=== PATIENT | male | born 1985 | race Caucasian/White ===

== ENCOUNTER → 2018-10-08 08:19 | Outpatient (CLI) | payer OTHER, SELFPAY ==
[2018-10-08 10:18] LABS: Anion Gap 7 (5-15); BUN 15 mg/dL (7-18); BUN/Creat Ratio 16.7 RATIO (10-20); Calcium,Total 8.7 mg/dL (8.5-10.1); Chloride 105 mmol/L (98-107); Cholesterol 125 mg/dL (200); EST Glomerular Filtration Rate 104 mL/min (>60); Est Glom Filt Rate - Afr Amer 126 mL/min (>60); Glucose 86 mg/dL (74-106); High Density Lipoprotein 34 mg/dL; Potassium 4.4 mmol/L (3.5-5.1); Sodium Level 142 mmol/L (136-145); Triglycerides 148 mg/dL; Very Low Density Lipoprotein 30 mg/dL (5-40)
== END ==
PROVIDERS: Family Provider Family Medicine; PCP Family Medicine; Referring Provider Family Medicine; Visit Provider Family Medicine
DX: Z00.00 Encounter for general adult medical examination without abnormal findings (principal)
CPT/HCPCS: 36415; 80048; 80061

== ENCOUNTER 2021-10-26 08:38 | Outpatient (CLI) | payer OTHER, SELFPAY ==
[2021-10-26 10:09] LABS: Anion Gap 3 (5-15); BUN 11 mg/dL (7-18); BUN/Creat Ratio 12.6 RATIO (10-20); Calcium,Total 8.8 mg/dL (8.5-10.1); Chloride 108 mmol/L (98-107); Cholesterol 132 mg/dL (200); Creatinine, Serum 0.87 mg/dL (0.70-1.30); EST Glomerular Filtration Rate 105 mL/min (>60); Est Glom Filt Rate - Afr Amer 128 mL/min (>60); Glucose 92 mg/dL (74-106); High Density Lipoprotein 36 mg/dL; Potassium 4.1 mmol/L (3.5-5.1); Sodium Level 139 mmol/L (136-145); Triglycerides 113 mg/dL; Very Low Density Lipoprotein 23 mg/dL (5-40)
== END 2021-10-26 23:59 | disposition home or self-care (01) ==
LOC: MFPLAB 08:40
PROVIDERS: PCP Family Medicine; Referring Provider Family Medicine; Visit Provider Family Medicine
DX: Z13.220 Encounter for screening for lipoid disorders (principal)
CPT/HCPCS: 36415; 80048; 80061

== ENCOUNTER → 2023-09-25 | Outpatient (CLI) | payer OTHER, SELFPAY ==
--- NOTE | 2023-09-25 17:08 | RAD_ITS ---
STUDY: X-RAY - PARANASAL SINUSES REASON FOR EXAM: Male, 37 years old. NASAL CONGESTION TECHNIQUE: 3 view(s) of the paranasal sinuses were obtained. COMPARISON: None. FINDINGS: Normal visualized frontal, maxillary, ethmoidal and sphenoid sinuses. Normal visualized facial bones. The soft tissue structures are unremarkable. RAD/Sinuses min 3 Views IMPRESSION: Normal x-rays of the paranasal sinuses. Electronically Signed: Ben Field MD at 13:03 EST ,
== END | disposition home or self-care (01) ==
PROVIDERS: PCP Family Medicine; Referring Provider Family Medicine; Visit Provider Family Medicine
DX: R09.81 Nasal congestion (principal); R51.9 Headache, unspecified
CPT/HCPCS: 70220

== ENCOUNTER → 2024-07-21 | Outpatient (CLI) | payer OTHER, SELFPAY ==
--- NOTE | 2024-07-21 17:02 | RAD_ITS ---
EXAM: XR LEFT FOOT COMPLETE, 3 OR MORE VIEWS CLINICAL INDICATION: injury 1 month ago. Pain. TECHNIQUE: Frontal, lateral and oblique views of the left foot. COMPARISON: No relevant prior studies available. FINDINGS: BONES/JOINTS: No significant abnormality. No acute fracture. No subluxation. Normal alignment. Preservation of the joint space. No sclerotic or destructive changes observed. SOFT TISSUES: No significant abnormality. No soft tissue swelling or gas. No radiopaque foreign body. RAD/Foot min 3 Views IMPRESSION: Negative left foot x-rays. Electronically Signed: Wilfrido Duran DO at 23:56 EST ,
== END | disposition home or self-care (01) ==
LOC: MTRAD 17:01
PROVIDERS: PCP Family Medicine; Referring Provider Family Medicine; Visit Provider Family Medicine
DX: M79.672 Pain in left foot (principal)
CPT/HCPCS: 73630

== ENCOUNTER 2024-08-23 17:30 | Outpatient (RCR) | payer OTHER, SELFPAY ==
--- NOTE | 2024-08-09 17:31 | HP.PTEVAL_ITS ---
Patient's Visit Information Visit Information Visit Information: CIARAN PINA is a 38 year old M referred to Physical Therapy by Dr. Bijan Chu MD with a diagnosis of LEFT FOOT PAIN. Date of Evaluation: 08/09/24 Physical Therapist: Shine Miller PT, Cert MDT, OCS Visit Plan Frequency: 1-2x /Week Duration: 4 Weeks Plan: PT INTERVENTIONS TOE /MCP ROM ,STRENGTHENING TOES ,INTRINSIC ST RENGTHENING , AND PROPRIOCEPTION Subjective Subjective: This 38 y/o male presents to physical therapy with left foot pain. Patient hurt foot aerial yoga on Jun 16 by hit toe/foot . Patient Jun 16 Urgent care did x-rays -. Place post op boot . Seen DR Anaya Jul 22 repeated x-rays -. Patient DR recommended PT. Patient has not been doing Yoga. Initially had bruising toes and edema. Patient denies paresthesia/tingling-. Patient symptoms did interfere with sleeping. Patient has soreness with contact. Patient condition affects yoga. Patient goals to aerial yoga and generalized. 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[employer] SOCIAL: Pain Left Foot: Pain Intensity (Out of 10): 2 Pain Intensity Range: 10 Objective Objective: POSTURE: pes planus GAIT:reciprocal pattern NEURO: denies paresthesia/tingling, OBSERVATION: mild ecchymosis 2 toe ,mild effusion TTP: 2nd toe AROM: ankle dorsiflexion 5 degrees ,plantarflexion 65 degrees ,eversion 5 degrees ,inversion 35 TOE ROM: WFL MMT: ankle 5/5 stabilizers,toe extensors 4/5 ,flexors 4/5 except 4-/5 PROPRIOCEPTION: intact Balance/Special Test Scores Lower Extremity Functional Score: 56 Goals Goal 1:: Patient to be I with HEP for toe ex's Goal Time Frame: 4-6 Weeks Goal 2:: Patient to demonstrate 75% improvement with less toe pain and improved function and return to yoga. Goal Time Frame: 4-6 Weeks Goal 3:: Patient to improve ROM toes phalanges to return to yoga and normal activity Goal Time Frame: 4-6 Weeks Goal 4:: Patient to improve LFES score by 5 points to improve QOL and function Goal Time Frame: 4-6 Weeks Rehabilitation Potential Physical Therapy Diagnosis: This patient has left toe MTP phalanges sprain with pain ,,mild effusion 2nd toe and unable to return to prior level of activity and yoga Rehabilitation Potential: Fair Anticipated Interventions Patient/Client Instruction: Educate patient on: Condition and Plan of Care For the Purpose of:: To decrease pain, To increase ROM, To improve muscle performance and motor function, To improve ability to perform ADL's, To increase tolerance to activity/condition/position, To improve ability of physical actions for home/community/work/leisure, To improve gait and locomotor functions, To improve health of tissue and To decrease soft tissue restriction Therapeutic Exercise to Include: Strength training, Balance training, Flexibilty training and Active ROM Comment: toes phalanges For the Purpose of:: To decrease pain, To decrease swelling/inflammation, To increase ROM, To improve muscle performance and motor function, To increase tolerance to activity/condition/position, To improve ability of physical actions for home/community/work/leisure, To improve health of tissue, To decrease soft tissue restriction, To increase flexibility/ROM, To improve tolerance to ADL's and Other Other: yoga Text: Thank you for the opportunity to evaluate your patient. For Medicare and Medicare HMO plans, please review the plan of care and approve it. It will need to be FAXED BACK to us at [phone] for Medicare purposes. For Medicare only, by signing this I certify the plan of care. Please let me know if there are questions or concerns regarding this plan of care. Physician Sign ature: Date:
--- NOTE | 2024-12-15 10:12 | HP.PTDCSUM ---
Discharge Summary D/C summary: It has been my pleasure to treat CIARAN PINA referred by Dr. Bijan Chu MD, with the diagnosis of LEFT FOOT PAIN for a total of 2 visit(s). Discharge Date: Please see the following information for a summary of their discharge status. Subjective Subjective: Doing better Pain Left Foot: Pain Intensity (Out of 10): 1 Overall Improvement % Improvement: 100 Objective Objective/Function: Did well with progression of strengthening and proprioception no pain in toes ready to return to yoga Goals Goal 1:: Patient to be I with HEP for toe ex's Goal 2:: Patient to demonstrate 75% improvement with less toe pain and improved function and return to yoga. Goal 3:: Patient to improve ROM toes phalanges to return to yoga and normal activity Goal 4:: Patient to improve LFES score by 5 points to improve QOL and function Plan Plan: d/c to HEP D/C Information d/c sentence: If there are questions or concerns regarding this patient's physical therapy, please feel free to call me at [phone]. Thank you for the referral of this patient. Sincerely, Shine Miller, PT, Cert MDT, OCS Balance/Gait/Functional tests Balance/Special Test Scores Lower Extremity Functional Score: 56 Improvement % Improvement: 100
== END 2024-08-23 19:00 | disposition home or self-care (01) ==
LOC: PT 17:30
PROVIDERS: PCP Family Medicine; Referring Provider Family Medicine; Visit Provider Family Medicine
DX: M79.672 Pain in left foot (principal)
CPT/HCPCS: 97110; 97161

== ENCOUNTER → 2024-09-24 | Outpatient (CLI) | payer OTHER, SELFPAY ==
[2024-09-24 11:11] LABS: Anion Gap 5 (5-15); BUN 12 mg/dL (7-18); BUN/Creat Ratio 12.6 RATIO (10-20); Calcium,Total 9.2 mg/dL (8.5-10.1); Chloride 105 mmol/L (98-107); Cholesterol 141 mg/dL (200); Creatinine, Serum 0.95 mg/dL (0.70-1.30); EST Glomerular Filtration Rate 94 mL/min (>60); Est Glom Filt Rate - Afr Amer 114 mL/min (>60); Glucose 89 mg/dL (74-106); High Density Lipoprotein 38 mg/dL; Potassium 4.2 mmol/L (3.5-5.1); Sodium Level 139 mmol/L (136-145); Triglycerides 155 mg/dL; Very Low Density Lipoprotein 31 mg/dL (5-40)
== END | disposition home or self-care (01) ==
LOC: MTLAB 07:51
PROVIDERS: PCP Family Medicine; Referring Provider Family Medicine; Visit Provider Family Medicine
DX: Z13.1 Encounter for screening for diabetes mellitus (principal)
CPT/HCPCS: 36415; 80048; 80061